=== PATIENT | female | born 2000 | race Two or more races ===

== ENCOUNTER 2021-10-15 10:48 | Emergency (ER) | payer SELFPAY ==
[~2021-10-15] VITALS: Ht 170.2 cm; Wt 64.3 kg
[2021-10-15 10:58] VITALS: BP 127/74
== END 2021-10-15 14:45 | disposition left against medical advice (07) ==
LOC: ER 10:48
DX: S61.412A Laceration without foreign body of left hand, initial encounter (principal); Z53.21 Procedure and treatment not carried out due to patient leaving prior to being seen by health care provider; W26.9XXA Contact with unspecified sharp object(s), initial encounter; Y93.89 Activity, other specified; Y92.89 Other specified places as the place of occurrence of the external cause; Y99.8 Other external cause status